=== PATIENT | female | born 1980 | race Caucasian/White ===

== ENCOUNTER 2018-07-30 18:39 | Emergency (ER) | payer OTHER ==
[2018-07-30 18:52] VITALS: BMI 28.3
--- NOTE | 2018-07-30 19:38 | PDOC ---
History of Present Illness - General Chief Complaint: Pain, Acute Stated Complaint: Pain, Acute Time Seen by Provider: 07/30/18 19:37 - History of Present Illness Initial Comments: 37 year old female with history of nephrolithiasis and ectopic pregnancies presenting with right lower quadrant pain, nausea, and vomiting for the past three days. Had a few episodes of NBNB vomiting. Her pain is isolated to the right lower quadrant and it is slightly improved with Tylenol. Denies any fevers , chills, diarrhea, headache, chest pain, SOB, or other symptoms. 07/30/18 19:52 Past History - Past Medical History Allergies/Adverse Reactions: Allergies Allergy/AdvReac Type Severity Reaction Status Date / Time No Known Allergies Allergy Verified 07/30/18 18:49 Home Medications: Ambulatory Orders No Home Medications 0 dose .ROUTE UTDICT 12/17/13 COPD: No - Surgical History Abdominal Surgery: Yes - Reproductive History (#): 7 Para: 3 - Immunization History Immunization Up to Date: Yes - Suicide/Smoking/Psychosocial Hx Smoking History: Current every day smoker Have you smoked in the past 12 months: Yes Number of Cigarettes Smoked Daily: 10 Information on smoking cessation initiated: No Hx Alcohol Use: No Drug/Substance Use Hx: No Review of Systems - Review of Systems Constitutional: Yes: Loss of Appetite. No: Chills, Diaphoresis, Fever HEENTM: No: Blurred Vision, Tearing Respiratory: No: Cough, Orthopnea, Shortness of Breath, SOB at Rest Cardiac (ROS): No: Chest Pain, Edema, Irregular Heart Rate ABD/GI: Yes: Nausea, Vomiting. No: Diarrhea : No: Dysuria, Discharge, Frequency, Urgency Musculoskeletal: No: Back Pain, Joint Pain Integumentary: No: Lumps, Pallor, Pruritus, Rash Neurological: No: Headache, Numbness, Paresthesia Psychiatric: No: Anxiety, Depression Endocrine: No: Flushing, Intolerance to Cold, Intolerance to Heat, Unexplained Weight Gain Hematologic/Lymphatic: No: Anemia, Blood Clots *Physical Exam - Vital Signs Last Vital Signs Temp Pulse Resp BP Pulse Ox 98.6 F 78 18 116/71 97 07/30/18 18:50 07/30/18 18:50 07/30/18 18:50 07/30/18 18:50 07/30/18 18:50 - Physical Exam General Appearance: Yes: Nourished, Appropriately Dressed. No: Apparent Distress HEENT: positive: EOMI, DESEAN, Normal ENT Inspection, Normal Voice Neck: positive: Trachea midline, Normal Thyroid, Supple. negative: Tender, Rigid Respiratory/Chest: positive: Lungs Clear, Normal Breath Sounds. negative: Chest Tender, Respiratory Distress Cardiovascular: positive: Regular Rhythm, Regular Rate Female Pelvic Exam: positive: normal external exam, cervical os closed, normal size ovaries (slight enlargment of hte right adnexa). negative: normal adnexa ( right adnexal tenderness), CMT, discharge, lesions Gastrointestinal/Abdominal: positive: Normal Bowel Sounds, Tender (rlq tenderness to palpation), Flat, Soft Lymphatic: negative: Adenopathy, Tenderness Musculoskeletal: positive: Normal Inspection. negative: CVA Tenderness Extremity: positive: Normal Capillary Refill, Normal Inspection, Normal Range of Motion. negative: Tender Integumentary: positive: Normal Color, Dry, Warm Neurologic: positive: Fully Oriented, Alert, Normal Mood/Affect, Normal Response , Motor Strength /5 ED Treatment Course - LABORATORY CBC & Chemistry Diagram: 07/30/18 20:46 07/30/18 20:46 Medical Decision Making - Medical Decision Making 37 year old female with N/V RLQ abdominal pain for the past few days. She also had right adnexal tenderness on pelvic exam without CMT or discharge. US demonstrating 2 CM cyst in the right ovary. She tolerated crackers and water on DC. Abdominal pain improved. appendix unremarkable on CT. Patients labs WNL and VSS. Will DC with Tylenol/ Motrin use instructions, follow up instructions, and return precautions. 07/31/18 00:40 *DC/Admit/Observation/Transfer Diagnosis at time of Disposition: Ovarian cyst Qualifiers: Laterality: right Qualified Code(s): N83.201 - Unspecified ovarian cyst, right side - Discharge Dispostion Disposition: HOME Condition at time of disposition: Improved Decision to Admit order: No - Referrals Referrals: Jessica Bahena MD [Primary Care Provider] - Leonid Meng MD [Staff Physician] - - Patient Instructions Printed Discharge Instructions: DI for Ovarian Cyst Additional Instructions: Please use Tylenol and Motrin to treat your pain. Your appendix is fine and you have a 2 CM cyst. Please follow up with your OBGyn doctor. If you do not have one, please use Dr. Meng on our sheet. Please return to the ED if you have any new or worsening symptoms. - Post Discharge Activity
[2018-07-30] MEDS ORDERED: SODIUM CHLORIDE 1,000 ML IV STA (20:13)
[2018-07-30] MEDS ORDERED: morphine CARPU-JECT 4 MG/1 ML DISP.SYRIN IVPUSH ONE (20:13)
[2018-07-30] MEDS ORDERED: ONDANSETRON 4 MG/2 ML VIAL IVPUSH ONE (20:13)
--- NOTE | 2018-07-30 20:33 | PDOC ---
Attending Attestation - Resident Resident Name: [email or web address] - ED Attending Attestation I have performed the following: I have examined & evaluated the patient, The case was reviewed & discussed with the resident, I agree w/resident's findings & plan, Exceptions are as noted - HPI HPI: 07/30/18 20:30 37yoF w/ 3d of RLQ/SP pain associated w/ n/v. non-migratory, no fevers, no vag discharge. States has hx of "ov cyst", chart review shows hx of dominant follicle w/ 2cmx1.5cm cyst a few years ago. Hx of irreg periods, unknown if . Has IUD in place x 11 years, unsure if it was the 5 year or 10-year IUD, either way, it is . AF, VSS NAD, well appearing RRR CTABL abd w/ RLQ ttp and SP ttp, no guarding, no rebound pelvic as per resident note. no edema neuro grossly intact A&O x 3. 37yoF w/ RLQ pain and inability to tolerate PO. Low risk for STI/PID or ov torsion, r/o appy. - labs - UPT - CTAP - consider pelvic sono if CT negative - ivf, sxs control - dispo per results.
[2018-07-30] MEDS ORDERED: morphine SULFATE 4 MG/ML VIAL ONE (20:48)
[2018-07-30] MEDS ORDERED: ONDANSETRON 4 MG/2 ML VIAL ONE (20:48)
[2018-07-30 20:53] LABS: BASO % 0.2 % (0-2.0); EOS % 5.2 % (0-4.5); HEMATOCRIT 41.8 % (32.4-45.2); HEMOGLOBIN 13.9 GM/dL (10.7-15.3); LYMPH % 24.4 % (8-40); MCH 27.7 pg (25.7-33.7); MCHC 33.3 g/dl (32.0-36.0); MEAN CELL VOLUME 83.1 fl (80-96); MEAN PLT VOLUME 7.7 fl (7.5-11.1); MONO % 7.6 % (3.8-10.2); NEUT % 62.6 % (42.8-82.8); PLATELET COUNT 440 K/MM3 (134-434); RBC 5.03 M/mm3 (3.60-5.2); RDW 14.1 % (11.6-15.6); WHITE BLOOD COUNT 10.9 K/mm3 (4.0-10.0)
[2018-07-30 21:26] LABS: URINE APPEARANCE CLEAR; URINE BILIRUBIN NEGATIVE (<2.0 mg/dL); URINE COLOR YELLOW; URINE GLUCOSE (UA) NEGATIVE (NEGATIVE); URINE KETONE NEGATIVE (NEGATIVE); URINE LEUK ESTERASE NEGATIVE (NEGATIVE); URINE NITRITE NEGATIVE (NEGATIVE); URINE PROTEIN NEGATIVE (NEGATIVE)
[2018-07-30 21:32] LABS: ALBUMIN 3.8 g/dl (3.4-5.0); ALK PHOS 100 U/L (45-117); AMYLASE 50 U/L (25-115); ANION GAP 6 MMOL/L (8-16); BILIRUBIN,TOTAL 0.2 mg/dL (0.2-1); BLOOD UREA NITROGEN 10 mg/dL (7-18); CALCIUM 9.5 mg/dL (8.5-10.1); CHLORIDE 109 mmol/L (98-107); CO2 25 mmol/L (21-32); CREATININE 0.6 mg/dL (0.55-1.3); GLUCOSE,RANDOM 92 mg/dL (74-106); LIPASE 125 U/L (73-393); POTASSIUM 4.1 mmol/L (3.5-5.1); SGOT/AST 18 U/L (15-37); SGPT/ALT 27 U/L (13-61); SODIUM 140 mmol/L (136-145); TOT PROT 7.4 g/dl (6.4-8.2)
[2018-07-31 00:28] VITALS: BP 119/67; PULSE 79; TEMP 97.6
== END 2018-07-31 00:51 | disposition home or self-care (01) ==
LOC: JER 18:39
PROC: 3E033NZ Introduction of Analgesics, Hypnotics, Sedatives into Peripheral Vein, Percutaneous Approach (ICD-10-PCS; principal; 2018-07-30)
PROC: 3E033GC Introduction of Other Therapeutic Substance into Peripheral Vein, Percutaneous Approach (ICD-10-PCS; 2018-07-30)
DX: N83.201 Unspecified ovarian cyst, right side (principal); Z87.442 Personal history of urinary calculi
CPT/HCPCS: 36415; 74177-TC; 80053; 81003; 82150; 83690; 84703; 85025; 87086; 99283-25; J7030

== ENCOUNTER 2024-12-17 14:20 | Emergency (ER) | payer OTHER ==
[2024-12-17 14:27] VITALS: BP 152/83; PULSE 96; RESP 18; TEMP 97.9; BMI 27.4
[2024-12-17] MEDS ORDERED: ACETAMINOPHEN 500 MG TABLET (FP) ONE (15:15)
[2024-12-17] MEDS: ACETAMINOPHEN 500 MG TABLET (FP) PO ONE (15:17)
== END 2024-12-17 16:42 | disposition home or self-care (01) ==
LOC: FER 14:20
DX: S59.901A Unspecified injury of right elbow, initial encounter (principal); W20.8XXA Other cause of strike by thrown, projected or falling object, initial encounter; Y92.219 Unspecified school as the place of occurrence of the external cause
CPT/HCPCS: 73070-TC-RT-FY; 73090-TC-RT-FY; 99283-25